=== PATIENT | female | born 1960 | race Caucasian/White ===

== ENCOUNTER → 2020-01-28 10:12 | Outpatient (BNVA) | payer MEDICAID, SELFPAY | PROVIDERS: Visit Provider Nurse Practitioner Family | DX: N39.0 Urinary tract infection, site not specified (principal) | CPT/HCPCS: 81001 ==

== ENCOUNTER 2020-02-09 09:07 | Outpatient (CLI) | payer MEDICAID, SELFPAY ==
[2020-02-09 10:19] LABS: Basophils % 0.3 %; Eosinophils # 0.8 10^3/uL (0.0-0.8); Eosinophils % 11.3 %; Hemoglobin 10.2 g/dL (11.5-15.3); Lymphocytes # 0.7 10^3/uL (0.8-4.8); Lymphocytes % 10.6 %; Mean Corpuscular HGB Conc 30.9 g/dL (30.0-36.0); Mean Corpuscular Hemoglobin 27.6 pg (28.0-34.0); Mean Corpuscular Volume 89.4 fL (81-99); Mean Platelet Volume 9.1 fL (7.4-10.4); Monocytes # 0.6 10^3/uL (0.2-0.9); Monocytes % 8.5 %; Neutrophils # 4.7 10^3/uL (1.8-7.7); Neutrophils % 68.7 %; Nucleated Red Blood Cells % 0 %; Platelet Count 252 10^3/cmm (130-400); Red Blood Count 3.69 10^6/uL (4.1-5.3); Red Cell Distribution Width 13.7 % (12.1-15.1); White Blood Count 6.8 10^3/uL (4.0-10.0)
[2020-02-09 10:29] LABS: INR 1.02 (0.8-1.2)
[2020-02-09 10:39] LABS: Alanine Aminotransferase 14 U/L (0-33); Albumin Level 3.3 g/dL (3.5-5.2); Alkaline Phosphatase 68 IU/L (35-105); Anion Gap 12.3 (5-19); Aspartate Amino Transferase 18 U/L (0-32); Blood Urea Nitrogen 8 mg/dL (6-20); Calcium 9.6 mg/dL (8.5-10.5); Carbon Dioxide 29 mmol/L (22-29); Chloride 104 mmol/L (98-107); Globulin 3.1 g/dL (1.3-4.6); Glomerular Filtration Rate 85.6 mL/min (90-130); Glucose 101 mg/dL (65-115); Magnesium 2.2 mg/dL (1.7-2.3); Osmolality Calculated 288 mOsm/kg (285-295); Potassium 4.3 mmol/L (3.5-5.1); Sodium 141 mmol/L (136-145); Total Bilirubin 0.2 mg/dL (0.15-1.2); Total Protein 6.4 g/dL (6.6-8.7)
== END 2020-02-09 09:08 | disposition home or self-care (01) ==
LOC: LAB 09:09
PROVIDERS: PCP Family Medicine; Visit Provider Obstetrics & Gynecology Gynecologic Oncology
DX: C54.1 Malignant neoplasm of endometrium (principal); R00.0 Tachycardia, unspecified; N90.89 Other specified noninflammatory disorders of vulva and perineum
CPT/HCPCS: 36415; 80053; 83735; 85025; 85610; 85730

== ENCOUNTER → 2020-04-03 11:07 | Outpatient (BNVA) | payer MEDICAID, SELFPAY | PROVIDERS: PCP Family Medicine; Visit Provider Family Medicine | DX: C54.1 Malignant neoplasm of endometrium (principal) | CPT/HCPCS: 80053; 81003; 87077; 87086; 87186 ==

== ENCOUNTER 2020-04-10 13:51 | Outpatient (CLI) | payer MEDICAID, SELFPAY ==
[2020-04-10 14:33] LABS: Basophils % 0.9 %; Eosinophils % 1.3 %; Hemoglobin 7.3 g/dL (11.5-15.3); Lymphocytes # 0.3 10^3/uL (0.8-4.8); Lymphocytes % 13.1 %; Mean Corpuscular HGB Conc 30.4 g/dL (30.0-36.0); Mean Corpuscular Hemoglobin 27.4 pg (28.0-34.0); Mean Corpuscular Volume 90.2 fL (81-99); Mean Platelet Volume 9.6 fL (7.4-10.4); Monocytes # 0.2 10^3/uL (0.2-0.9); Monocytes % 8.3 %; Neutrophils # 1.7 10^3/uL (1.8-7.7); Neutrophils % 75.5 %; Nucleated Red Blood Cells % 0 %; Platelet Count 166 10^3/cmm (130-400); Red Blood Count 2.66 10^6/uL (4.1-5.3); Red Cell Distribution Width 14.9 % (12.1-15.1); White Blood Count 2.3 10^3/uL (4.0-10.0)
[2020-04-10 14:38] LABS: INR 1.15 (0.8-1.2); Partial Thromboplastin Time 24.7 SECONDS (23.9-36.7)
[2020-04-10 14:46] LABS: Alanine Aminotransferase 10 U/L (0-33); Alkaline Phosphatase 62 IU/L (35-105); Anion Gap 15.9 (5-19); Aspartate Amino Transferase 13 U/L (0-32); Blood Urea Nitrogen 6 mg/dL (6-20); Calcium 9.6 mg/dL (8.5-10.5); Carbon Dioxide 28 mmol/L (22-29); Chloride 102 mmol/L (98-107); Globulin 2.9 g/dL (1.3-4.6); Glomerular Filtration Rate 85.6 mL/min (90-130); Glucose 164 mg/dL (65-115); Magnesium 1.5 mg/dL (1.7-2.3); Osmolality Calculated 293 mOsm/kg (285-295); Potassium 3.9 mmol/L (3.5-5.1); Sodium 142 mmol/L (136-145); Total Bilirubin 0.2 mg/dL (0.15-1.2); Total Protein 5.9 g/dL (6.6-8.7)
== END 2020-04-10 13:52 | disposition home or self-care (01) ==
LOC: LAB 13:55
PROVIDERS: PCP Family Medicine; Visit Provider Obstetrics & Gynecology Gynecologic Oncology
DX: C54.1 Malignant neoplasm of endometrium (principal)
CPT/HCPCS: 80053; 83735; 85025; 85610; 85730

== ENCOUNTER 2020-05-01 09:05 | Outpatient (CLI) | payer MEDICAID, SELFPAY ==
[2020-05-01 09:35] LABS: Basophils % 0.3 %; Eosinophils % 0.3 %; Hemoglobin 7.8 g/dL (11.5-15.3); Lymphocytes # 0.4 10^3/uL (0.8-4.8); Lymphocytes % 10.8 %; Mean Corpuscular HGB Conc 31.2 g/dL (30.0-36.0); Mean Corpuscular Hemoglobin 28.8 pg (28.0-34.0); Mean Corpuscular Volume 92.3 fL (81-99); Mean Platelet Volume 9.5 fL (7.4-10.4); Monocytes # 0.3 10^3/uL (0.2-0.9); Neutrophils % 81.1 %; Nucleated Red Blood Cells % 0 %; Platelet Count 147 10^3/cmm (130-400); Red Blood Count 2.71 10^6/uL (4.1-5.3); Red Cell Distribution Width 15.7 % (12.1-15.1); White Blood Count 3.7 10^3/uL (4.0-10.0)
[2020-05-01 09:50] LABS: Alanine Aminotransferase 12 U/L (0-33); Albumin Level 3.1 g/dL (3.5-5.2); Alkaline Phosphatase 66 IU/L (35-105); Anion Gap 18.7 (5-19); Aspartate Amino Transferase 18 U/L (0-32); Blood Urea Nitrogen 7 mg/dL (6-20); Calcium 9.7 mg/dL (8.5-10.5); Carbon Dioxide 24 mmol/L (22-29); Chloride 98 mmol/L (98-107); Globulin 3.1 g/dL (1.3-4.6); Glomerular Filtration Rate 85.6 mL/min (90-130); Glucose 226 mg/dL (65-115); Magnesium 1.2 mg/dL (1.7-2.3); Osmolality Calculated 287 mOsm/kg (285-295); Potassium 3.7 mmol/L (3.5-5.1); Sodium 137 mmol/L (136-145); Total Bilirubin 0.2 mg/dL (0.15-1.2); Total Protein 6.2 g/dL (6.6-8.7)
[2020-05-01 10:01] LABS: CA 125 26.1 U/mL (0-35)
== END 2020-05-01 09:06 | disposition home or self-care (01) ==
LOC: LAB 09:06
PROVIDERS: PCP Family Medicine; Visit Provider Obstetrics & Gynecology Gynecologic Oncology
DX: C54.1 Malignant neoplasm of endometrium (principal)
CPT/HCPCS: 80053; 83735; 85025; 86304

== ENCOUNTER 2020-05-22 08:17 | Outpatient (CLI) | payer MEDICAID, SELFPAY ==
[2020-05-22 08:54] LABS: Basophils % 0.4 %; Eosinophils % 0.8 %; Hematocrit 26.9 % (37.0-47.0); Hemoglobin 8.6 g/dL (11.5-15.3); Lymphocytes # 0.5 10^3/uL (0.8-4.8); Lymphocytes % 9.2 %; Mean Corpuscular Hemoglobin 29.6 pg (28.0-34.0); Mean Corpuscular Volume 92.4 fL (81-99); Mean Platelet Volume 9.9 fL (7.4-10.4); Monocytes # 0.6 10^3/uL (0.2-0.9); Monocytes % 10.5 %; Neutrophils # 4.2 10^3/uL (1.8-7.7); Neutrophils % 78.2 %; Nucleated Red Blood Cells % 0 %; Platelet Count 150 10^3/cmm (130-400); Red Blood Count 2.91 10^6/uL (4.1-5.3); Red Cell Distribution Width 17.8 % (12.1-15.1); White Blood Count 5.3 10^3/uL (4.0-10.0)
[2020-05-22 09:22] LABS: Alanine Aminotransferase 13 U/L (0-33); Albumin Level 3.5 g/dL (3.5-5.2); Alkaline Phosphatase 67 IU/L (35-105); Anion Gap 15.9 (5-19); Aspartate Amino Transferase 17 U/L (0-32); Blood Urea Nitrogen 7 mg/dL (6-20); Calcium 9.1 mg/dL (8.5-10.5); Carbon Dioxide 27 mmol/L (22-29); Chloride 102 mmol/L (98-107); Globulin 2.2 g/dL (1.3-4.6); Glomerular Filtration Rate 85.6 mL/min (90-130); Glucose 161 mg/dL (65-115); Magnesium 1.3 mg/dL (1.7-2.3); Osmolality Calculated 291 mOsm/kg (285-295); Potassium 3.9 mmol/L (3.5-5.1); Sodium 141 mmol/L (136-145); Total Bilirubin 0.3 mg/dL (0.15-1.2); Total Protein 5.7 g/dL (6.6-8.7)
[2020-05-22 09:33] LABS: CA 125 22.3 U/mL (0-35)
== END 2020-05-22 08:18 | disposition home or self-care (01) ==
PROVIDERS: PCP Family Medicine; Visit Provider Obstetrics & Gynecology Gynecologic Oncology
DX: C54.1 Malignant neoplasm of endometrium (principal)
CPT/HCPCS: 80053; 83735; 85025; 86304

== ENCOUNTER → 2020-08-24 10:28 | Outpatient (BNVA) | payer MEDICAID, SELFPAY | PROVIDERS: PCP Family Medicine; Visit Provider Family Medicine | DX: R30.0 Dysuria (principal) | CPT/HCPCS: 81000; 87086 ==

== ENCOUNTER → 2021-03-12 10:14 | Outpatient (BNVA) | payer MEDICAID, SELFPAY | PROVIDERS: PCP Family Medicine; Visit Provider Obstetrics & Gynecology Gynecologic Oncology | DX: C54.1 Malignant neoplasm of endometrium (principal) | CPT/HCPCS: 80053; 83735; 84443; 85025 ==

== ENCOUNTER → 2021-04-02 12:08 | Outpatient (BNVA) | payer MEDICAID, SELFPAY | PROVIDERS: PCP Family Medicine; Visit Provider Obstetrics & Gynecology Gynecologic Oncology | DX: C54.1 Malignant neoplasm of endometrium (principal) | CPT/HCPCS: 80053; 83735; 84443; 85025 ==

== ENCOUNTER → 2021-04-09 14:45 | Outpatient (BNVA) | payer MEDICAID, SELFPAY | PROVIDERS: PCP Family Medicine; Visit Provider Family Medicine | DX: C55 Malignant neoplasm of uterus, part unspecified (principal) | CPT/HCPCS: 81003; 87086 ==

== ENCOUNTER → 2021-04-20 11:58 | Outpatient (BNVA) | payer MEDICAID, SELFPAY | PROVIDERS: PCP Family Medicine; Visit Provider Family Medicine | DX: C55 Malignant neoplasm of uterus, part unspecified (principal); K62.5 Hemorrhage of anus and rectum | CPT/HCPCS: 80053; 83735; 84443; 85007; 85027; 86304 ==

== ENCOUNTER 2021-05-03 09:51 | Outpatient (CLI) | payer MEDICAID, SELFPAY ==
--- NOTE | 2021-05-03 09:57 | FL_ITS ---
WS: [id number] Barium Enema TECHNICAL: Double contrast barium enema FLUOROSCOPY TIME: 3.7 minutes CLINICAL INFORMATION: K62.5 - Hemorrhage of anus and rectum COMPARISON: None. FINDINGS: Loss of the normal mucosal pattern distal sigmoid colon extending to the rectum with decrea sed pliability. This is nonspecific but can be seen with chronic or recurrent colitis. Consider radia tion colitis considering clinical history. More proximal sigmoid colon is normal. No evidence of high-grade stricture. Sigmoid diverticulosis. M ultiple diverticuli in the left colon. Additional incidental diverticula in the transverse colon. Nor mal splenic and hepatic flexure. Contrast rapidly traverses the colon to the cecum without evidence o f obstruction or stricture or mass. Normal ileocecal valve. Normal postevacuation images. Pelvic phleboliths. Mild degenerative arthritis both hips. FL/FL barium enema w air* [id number] IMPRESSION: 1. Loss of the normal haustral markings with decreased pliability likely due t o chronic scarring with retraction. This is nonspecific but can be seen with ch ronic or recurrent colitis. 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 This can also be seen with chronic infectious or inflammatory colitis including ulcerative colitis. 2. No evidence of high-grade stricture or obstructing mass. 3. Multiple incidental diverticuli in the transverse colon, left colon and sig moid colon. 4. Normal ileocecal valve.
== END 2021-05-03 09:52 | disposition home or self-care (01) ==
PROVIDERS: PCP Family Medicine; Visit Provider Surgery
DX: K62.5 Hemorrhage of anus and rectum (principal); K57.30 Diverticulosis of large intestine without perforation or abscess without bleeding
CPT/HCPCS: 74280

== ENCOUNTER → 2021-05-11 11:08 | Outpatient (BNVA) | payer MEDICAID, SELFPAY | PROVIDERS: PCP Family Medicine; Visit Provider Obstetrics & Gynecology Gynecologic Oncology | DX: C55 Malignant neoplasm of uterus, part unspecified (principal); E11.9 Type 2 diabetes mellitus without complications; I10 Essential (primary) hypertension; Z79.899 Other long term (current) drug therapy | CPT/HCPCS: 80053; 83735; 84443; 85025 ==

== ENCOUNTER 2021-05-25 08:07 | Outpatient (CLI) | payer MEDICAID, SELFPAY | END 2021-05-25 08:08 | disposition home or self-care (01) | LOC: WOUND 08:08 | PROVIDERS: PCP Family Medicine; Visit Provider Nurse Practitioner Family | DX: I96 Gangrene, not elsewhere classified (principal); L89.312 Pressure ulcer of right buttock, stage 2; L89.322 Pressure ulcer of left buttock, stage 2 | CPT/HCPCS: 11042; G0463 ==

== ENCOUNTER 2021-06-01 12:55 | Outpatient (CLI) | payer MEDICAID, SELFPAY | END 2021-06-01 12:56 | disposition home or self-care (01) | LOC: WOUND 12:56 | PROVIDERS: PCP Family Medicine; Visit Provider Thoracic Surgery (Cardiothoracic Vascular Surgery) | DX: I96 Gangrene, not elsewhere classified (principal); L89.152 Pressure ulcer of sacral region, stage 2 | CPT/HCPCS: 97597 ==

== ENCOUNTER → 2021-06-08 11:05 | Outpatient (BNVA) | payer MEDICAID, SELFPAY | PROVIDERS: PCP Family Medicine; Visit Provider Obstetrics & Gynecology Gynecologic Oncology | DX: C55 Malignant neoplasm of uterus, part unspecified (principal) | CPT/HCPCS: 80053; 83735; 84443; 85007; 85027 ==

== ENCOUNTER 2021-06-14 11:11 | Outpatient (CLI) | payer MEDICAID, SELFPAY | END 2021-06-14 11:12 | disposition home or self-care (01) | LOC: WOUND 11:12 | PROVIDERS: PCP Family Medicine; Visit Provider Nurse Practitioner Family | DX: Z09 Encounter for follow-up examination after completed treatment for conditions other than malignant neoplasm (principal) | CPT/HCPCS: 99212 ==

== ENCOUNTER → 2021-06-22 10:24 | Outpatient (BNVA) | payer MEDICAID, SELFPAY | PROVIDERS: PCP Family Medicine; Visit Provider Family Medicine | DX: R05 Cough (principal) | CPT/HCPCS: 71046 ==

== ENCOUNTER 2021-06-22 12:38 | Emergency (ER) | payer MEDICAID, SELFPAY ==
[2021-06-22] VITALS (11 sets, daily range): BP systolic 112–179; BP diastolic 71–99; PULSE 84–94; RESP 15–20; TEMP 37.2; O2SAT 94–97; BMI 41.7
[2021-06-22 13:33] LABS: Basophils % 0.3 %; Eosinophils # 0.2 10^3/uL (0.0-0.8); Hematocrit 29.8 % (37.0-47.0); Hemoglobin 8.7 g/dL (11.5-15.3); Mean Corpuscular HGB Conc 29.2 g/dL (30.0-36.0); Mean Corpuscular Hemoglobin 25.4 pg (28.0-34.0); Mean Corpuscular Volume 86.9 fL (81-99); Mean Platelet Volume 9.1 fL (7.4-10.4); Monocytes # 0.6 10^3/uL (0.2-0.9); Monocytes % 5.5 %; Neutrophils % 82.4 %; Nucleated Red Blood Cells % 0 %; Platelet Count 328 10^3/cmm (130-400); Red Blood Count 3.43 10^6/uL (4.1-5.3); Red Cell Distribution Width 15.4 % (12.1-15.1); White Blood Count 10.7 10^3/uL (4.0-10.0)
--- NOTE | 2021-06-22 13:54 | USCV_ITS ---
Bernadette Vega Age: 60 Gender: F : 1960 Exam Date: 06/22/2021 14:16 Ordering Phys: Luis Jarquin MD Technologist: Uyen Harman [place] [facility] [place]: BLE SWELLING/CHEST PAIN HISTORY: Lower extremity swelling. PROCEDURES: Venous duplex imaging was performed in bilateral lower extremities. The following venous structures were evaluated: common femoral vein, profunda vein, proximal portion of the greater saphenous vein, superficial femoral vein, and the popliteal vein. In addition, the posterior tibial and peroneal trunk were evaluated. Serial compression, augmentation maneuvers, and spectral Doppler flow evaluation were performed. FINDINGS: Examination was technically limited due to body habitus. No evidence of DVT seen in any vessel visualized at this time. CONCLUSIONS No evidence of right lower extremity DVT. No evidence of left lower extremity DVT. Dereje Lindsay MD (Electronically Signed) Final Date: 22 June 2021 14:50 S
--- NOTE | 2021-06-22 13:55 | W.ED.RECABL ---
HPI - Recheck/Abnormal Lab/Rx General: Chief Complaint: Recheck/Abnormal Lab/Rx Stated Complaint: sent by Dr Marinelli:blood transfusion;IV antibiotics Time Seen by Provider: 06/22/21 13:16 History of Present Illness: HPI narrative: Patient is a 60-year-old female with past medical history endometrial cancer on chemotherapy. She comes from her primary care doctor's office Dr. Marinelli in [place] complaining she needs a blood transfusion and was sent for that. She also says she has pneumonia on the left lung. She says when she coughs she passes blood clots from her urine and rectum. She says that is related to injury to her urethra and bowels from radiation and is a chronic problem she has been dealing with. She has changed her diet which actually has improved her bleeding.. Review of Systems General: Reports: 10 or more systems reviewed and unremarkable except in HPI and below Const: Denies: fatigue Eyes: Denies: change in vision, blurry vision or eye redness ENMT: Denies: throat pain, swelling of lips/tongue, ear or mastoid pain or nasal congestion Card: Denies: chest pain, palpitations, irregular heart rhythm, edema, dyspnea on exertion or orthopnea Resp: Reports: non-productive cough; Denies: dyspnea or productive cough GI: Reports: other (Mild blood in her stool at times chronic and unchanged.); Denies: abdominal pain, diarrhea or GI cramping : Reports: other (Hematuria chronically and unchanged); Denies: flank pain, difficulty voiding, urinary frequency or urinary urgency Musc: Denies: neck pain, back pain, extremity pain, joint pain, joint redness, limited range of motion or muscle weakness Skin/Breast: Denies: rash, pruritus, erythema, skin pain or skin tenderness Neuro: Denies: headache(s), numbness in extremities, weakness in extremities, sensory changes, difficulty walking, dizziness, confusion or Slurred speech present Psych: Denies: anxiety or depression Endo: Denies: polyuria All/Imm: Denies: urticaria, throat swelling or tongue swelling PFSH ED PFSH: Medical History Abdominal aneurysm Aspergers' syndrome Diabetes mellitus Hx of tuberculosis Hypertension Surgical History History of tonsillectomy and adenoidectomy Hx of facial fracture repair Hx of foot surgery Social History Smoking and tobacco status: never smoked Second hand smoke exposure: No Alcohol intake: never Lives independently: No Household members: family Current occupational status: unemployed History of recent travel: No Current gender identity: Female Physical Exam Const: COMMON NORMALS: no acute distress, average body habitus, patient oriented x3, no limitations, healthy appearing, alert and well nourished GENERAL APPEARANCE: cooperative, comfortable, well kempt and well developed ORIENTATION/CONSCIOUSNESS: Yes awake, Yes oriented to person, Yes oriented to place and Yes oriented to time HENMT: COMMON NORMALS: normocephalic, external ears normal and Normal external nose present HEAD & SCALP: normal to inspection and normocephalic NOSE: Normal external nose present EXTERNAL EAR: Yes external ears normal MOUTH: Normal oral and palatal mucosa present THROAT: posterior oropharynx normal Eye: COMMON NORMALS: Equal, round and reactive pupils present and EOMs intact bilaterally GENERAL EYE: appearance normal, both eyes and all related structures PUPIL: Yes Equal, round and reactive pupils present Neck/C-Spine: COMMON NORMALS: full ROM, no lymphadenopathy, no meningeal signs and no JVD GENERAL: Yes normal visual inspection Lymph: LYMPHATIC: no lymphadenopathy noted Chest: COMMONS NORMALS: normal inspection of the chest and normal palpation of entire chest wall Resp: COMMON NORMALS: normal respiratory effort, No retractions, No use of accessory muscles, clear to auscultation bilaterally and percussion normal EFFORT & INSPECTION: Yes able to speak in complete sentences AUSCULTATION: clear to auscultation bilaterally PERCUSSION: percussion normal Cardio: COMMON NORMALS: no JVD, regular rate, regular rhythm, S1 normal heart sound present, S2 normal heart sound present and Peripheral pulses 2+ throughout RATE: regular rate RHYTHM: regular rhythm HEART SOUNDS: S1 normal heart sound present and S2 normal heart sound present PERIPHERAL PULSES: Peripheral pulses 2+ throughout GI: COMMON NORMALS: Normal to inspection, nondistended, normoactive bowel sounds present, Soft to palpation, non-tender and no masses INSPECTION: Yes normal to inspection PALPATION: Yes Soft to palpation : COMMON NORMALS: Yes no CVA tenderness BLADDER/KIDNEY EXAM: Yes no CVA tenderness Back/Pelvis: COMMON NORMALS: no CVA tenderness, thoracic and lumbar spine normal to inspection, no thoracic nor lumbar tenderness and thoraco-lumbar ROM normal Extremity: COMMON NORMALS: normal to inspection, full ROM, capillary refill normal, no joint enlargement and no pedal edema GENERAL: Yes normal exam except as noted Neuro: COMMON NORMALS: patient oriented x3, CN's II-XII intact bilaterally, moves all extremities, no focal motor deficits, no sensory deficits noted and gait normal SENSORIUM/ORIENTATION: Yes alert, Yes oriented to person, Yes oriented to place and Yes oriented to time MENINGEAL SIGNS: Yes no meningeal signs Psych: COMMON NORMALS: mental status grossly normal, Normal thought process present, cooperative, normal affect and speech normal APPEARANCE: Yes well kempt ATTITUDE: Yes calm SPEECH: Yes normal speech THOUGHT PROCESS: Normal thought process present Skin: COMMON NORMALS: no rashes or lesions noted GENERAL SKIN EXAM: no rashes or lesions noted Course Vital Signs: Vital signs: Vital Signs Temperature 99.0 F 06/22/21 12:50 Pulse Rate 85 06/22/21 21:00 Respiratory Rate 18 06/22/21 21:00 Blood Pressure 141/87 06/22/21 21:00 Pulse Oximetry 97 06/22/21 21:00 MDM - Recheck/Abnormal Lab/Rx MDM Narrative: Medical decision making narrative: This patient comes to the ED complaining of upper respiratory infectious symptoms and chronically having blood in her urine and stool related to injury from radiation treating her endometrial cancer. CT chest is negative for any acute pathology and she knows about the thyroid mass being cancerous. She is having this treated as an outpatient I recommended she continue to follow-up and do so. As far as the bleeding she has not had any significant bleeding in the ED. Urinalysis does show microscopic hematuria. Her hemoglobin is 8.7 here which does not qualify her for transfusion at this time. We will send her with outpatient antibiotics to treat her URI and Tessalon Perles. Recommended she follow-up with her primary care doctor in a couple days to monitor improvement of her symptoms and return to the ER at anytime with worsening symptoms. Lab Data: Labs: Lab Results 06/22/21 06/22/21 06/22/21 Range/Units 13:20 13:20 14:35 WBC 10.7 H (4.0-10.0) 10^3/ uL RBC 3.43 L (4.1-5.3) 10^6/u L Hgb 8.7 L (11.5-15.3) g/dL Hct 29.8 L (37.0-47.0) % MCV 86.9 (81-99) fL MCH 25.4 L (28.0-34.0) pg MCHC 29.2 L (30.0-36.0) g/dL RDW 15.4 H (12.1-15.1) % Plt Count 328 (130-400) 10^3/c mm MPV 9.1 (7.4-10.4) fL Neut % (Auto) 82.4 % Lymph % (Auto) 9.0 % [place] % (Auto) 5.5 % Eos % (Auto) 2.0 % Baso % (Auto) 0.3 % Neut # (Auto) 8.80 H (1.8-7.7) 10^3/u L Lymph # (Auto) 1.0 (0.8-4.8) 10^3/u L [place] # (Auto) 0.6 (0.2-0.9) 10^3/u L Eos # (Auto) 0.2 (0.0-0.8) 10^3/u L Baso # (Auto) 0.0 (0.0-0.1) 10^3/u L Nucleated RBC % (a uto) 0 % Nucleated RBCs # 0.0 /100WBC D-Dimer (0-0.59) ug/mIFE U Sodium Cancelled Potassium Cancelled Chloride Cancelled Carbon Dioxide Cancelled Anion Gap Cancelled BUN Cancelled Creatinine Cancelled GFR Calculation Cancelled Glucose Cancelled Calculated Osmolal ity Cancelled Lactate (0.5-2.2) mmol/L Calcium Cancelled Total Bilirubin Cancelled AST Cancelled ALT Cancelled Alkaline Phosphata se Cancelled Troponin T Baselin e (0-10) ng/L Troponin T 120 Min [place] (0-10) ng/L Delta Troponin T (0-10) ABS# NT-Pro-B Natriuret Pep (0-125) pg/mL Total Protein Cancelled Albumin Cancelled Globulin Cancelled Urine Color (Yellow) Urine Appearance (CLEAR) Urine pH (5-7) Ur Specific Gravit y (1.005-1.030) Urine Protein (Negative) Urine Glucose (UA) (Normal) Urine Ketones (Negative) Urine Blood (Negative) Urine Nitrate (Negative) Urine Bilirubin (Negative) Urine Urobilinogen (Negative) mg/dL Ur Leukocyte Kimmy ase (Negative) Urine RBC (0-2) /hpf Urine WBC (0-5) /hpf Ur Squamous Epith Cells (0-5) /hpf Amorphous Sediment Urine Bacteria (NONE) /hpf SARS-CoV-2 Ag (Rap id) Negative (Negative) Blood Type Rho(D) Type Antibody Screen 06/22/21 06/22/21 06/22/21 Range/Units 14:41 14:41 14:41 WBC (4.0-10.0) 10^3/ uL RBC (4.1-5.3) 10^6/u L Hgb (11.5-15.3) g/dL Hct (37.0-47.0) % MCV (81-99) fL MCH (28.0-34.0) pg MCHC (30.0-36.0) g/dL RDW (12.1-15.1) % Plt Count (130-400) 10^3/c mm MPV (7.4-10.4) fL Neut % (Auto) % Lymph % (Auto) % [place] % (Auto) % Eos % (Auto) % Baso % (Auto) % Neut # (Auto) (1.8-7.7) 10^3/u L Lymph # (Auto) (0.8-4.8) 10^3/u L [place] # (Auto) (0.2-0.9) 10^3/u L Eos # (Auto) (0.0-0.8) 10^3/u L Baso # (Auto) (0.0-0.1) 10^3/u L Nucleated RBC % (a uto) % Nucleated RBCs # /100WBC D-Dimer 0.31 (0-0.59) ug/mIFE U Sodium 134 L Potassium 4.2 Chloride 98 Carbon Dioxide 28 Anion Gap 12.2 BUN 7 L Creatinine 0.9 GFR Calculation 63.9 L Glucose 137 H Calculated Osmolal ity 278 L Lactate 1.2 (0.5-2.2) mmol/L Calcium 8.5 Total Bilirubin 0.2 AST 15 ALT 9 Alkaline Phosphata se 61 Troponin T Baselin e (0-10) ng/L Troponin T 120 Min [place] (0-10) ng/L Delta Troponin T (0-10) ABS# NT-Pro-B Natriuret Pep 91 (0-125) pg/mL Total Protein 6.6 Albumin 3.3 L Globulin 3.3 Urine Color (Yellow) Urine Appearance (CLEAR) Urine pH (5-7) Ur Specific Gravit y (1.005-1.030) Urine Protein (Negative) Urine Glucose (UA) (Normal) Urine Ketones (Negative) Urine Blood (Negative) Urine Nitrate (Negative) Urine Bilirubin (Negative) Urine Urobilinogen (Negative) mg/dL Ur Leukocyte Kimmy ase (Negative) Urine RBC (0-2) /hpf Urine WBC (0-5) /hpf Ur Squamous Epith Cells (0-5) /hpf Amorphous Sediment Urine Bacteria (NONE) /hpf SARS-CoV-2 Ag (Rap id) (Negative) Blood Type Rho(D) Type Antibody Screen 06/22/21 06/22/21 06/22/21 Range/Units 14:41 14:41 16:47 WBC (4.0-10.0) 10^3/ uL RBC (4.1-5.3) 10^6/u L Hgb (11.5-15.3) g/dL Hct (37.0-47.0) % MCV (81-99) fL MCH (28.0-34.0) pg MCHC (30.0-36.0) g/dL RDW (12.1-15.1) % Plt Count (130-400) 10^3/c mm MPV (7.4-10.4) fL Neut % (Auto) % Lymph % (Auto) % [place] % (Auto) % Eos % (Auto) % Baso % (Auto) % Neut # (Auto) (1.8-7.7) 10^3/u L Lymph # (Auto) (0.8-4.8) 10^3/u L [place] # (Auto) (0.2-0.9) 10^3/u L Eos # (Auto) (0.0-0.8) 10^3/u L Baso # (Auto) (0.0-0.1) 10^3/u L Nucleated RBC % (a uto) % Nucleated RBCs # /100WBC D-Dimer (0-0.59) ug/mIFE U Sodium Potassium Chloride Carbon Dioxide Anion Gap BUN Creatinine GFR Calculation Glucose Calculated Osmolal ity Lactate (0.5-2.2) mmol/L Calcium Total Bilirubin AST ALT Alkaline Phosphata se Troponin T Baselin e 13 H (0-10) ng/L Troponin T 120 Min [place] 13.11 H (0-10) ng/L Delta Troponin T 0.11 (0-10) ABS# NT-Pro-B Natriuret Pep (0-125) pg/mL Total Protein Albumin Globulin Urine Color (Yellow) Urine Appearance (CLEAR) Urine pH (5-7) Ur Specific Gravit y (1.005-1.030) Urine Protein (Negative) Urine Glucose (UA) (Normal) Urine Ketones (Negative) Urine Blood (Negative) Urine Nitrate (Negative) Urine Bilirubin (Negative) Urine Urobilinogen (Negative) mg/dL Ur Leukocyte Kimmy ase (Negative) Urine RBC (0-2) /hpf Urine WBC (0-5) /hpf Ur Squamous Epith Cells (0-5) /hpf Amorphous Sediment Urine Bacteria (NONE) /hpf SARS-CoV-2 Ag (Rap id) (Negative) Blood Type O Negative Rho(D) Type Negative / 0 Antibody Screen Negative 06/22/21 Range/Units 16:55 WBC (4.0-10.0) 10^3/ uL RBC (4.1-5.3) 10^6/u L Hgb (11.5-15.3) g/dL Hct (37.0-47.0) % MCV (81-99) fL MCH (28.0-34.0) pg MCHC (30.0-36.0) g/dL RDW (12.1-15.1) % Plt Count (130-400) 10^3/c mm MPV (7.4-10.4) fL Neut % (Auto) % Lymph % (Auto) % [place] % (Auto) % Eos % (Auto) % Baso % (Auto) % Neut # (Auto) (1.8-7.7) 10^3/u L Lymph # (Auto) (0.8-4.8) 10^3/u L [place] # (Auto) (0.2-0.9) 10^3/u L Eos # (Auto) (0.0-0.8) 10^3/u L Baso # (Auto) (0.0-0.1) 10^3/u L Nucleated RBC % (a uto) % Nucleated RBCs # /100WBC D-Dimer (0-0.59) ug/mIFE U Sodium Potassium Chloride Carbon Dioxide Anion Gap BUN Creatinine GFR Calculation Glucose Calculated Osmolal ity Lactate (0.5-2.2) mmol/L Calcium Total Bilirubin AST ALT Alkaline Phosphata se Troponin T Baselin e (0-10) ng/L Troponin T 120 Min [place] (0-10) ng/L Delta Troponin T (0-10) ABS# NT-Pro-B Natriuret Pep (0-125) pg/mL Total Protein Albumin Globulin Urine Color Yellow (Yellow) Urine Appearance Clear (CLEAR) Urine pH 6 (5-7) Ur Specific Gravit y 1.010 (1.005-1.030) Urine Protein Neg (Negative) Urine Glucose (UA) Norm (Normal) Urine Ketones Negative (Negative) Urine Blood 3+ H (Negative) Urine Nitrate Negative (Negative) Urine Bilirubin Neg (Negative) Urine Urobilinogen Norm (Negative) mg/dL Ur Leukocyte Kimmy ase Negative (Negative) Urine RBC 0-4 H (0-2) /hpf Urine WBC None (0-5) /hpf Ur Squamous Epith Cells 0-4 H (0-5) /hpf Amorphous Sediment Not Reportable Urine Bacteria 1+ H (NONE) /hpf SARS-CoV-2 Ag (Rap id) (Negative) Blood Type Rho(D) Type Antibody Screen Discharge Plan Discharge Patient Disposition: Home Clinical Impression: Acute upper respiratory infection, Anemia Condition: Stable Prescriptions: New azithromycin 250 mg tablet 250 mg PO DAILY 4 Days Qty: 4 RF: 0 Tessalon Perles 100 mg capsule 100 mg PO Q6H PRN (Reason: cough) Qty: 20 RF: 0 No Action nystatin 100,000 unit/gram cream 1 applic TOPICAL BID Qty: 30 RF: 1 Eliquis 5 mg tablet 5 mg PO BID RF: 0 oxycodone 5 mg tablet 5 mg PO Q4H PRN (Reason: Pain) RF: 0 Vitamin B-12 50 mcg Lozenge 50 mcg PO DAILY RF: 0 metoprolol tartrate 25 mg tablet 12.5 mg PO BID RF: 0 Discharge Orders: Discharge ED (Routine); Ordered 06/22/21 Ordered By: Luis Jarquin Referrals: Purvi Marinelli MD [Primary Care Provider] - Discharge Diet: Advance as tolerated Discharge Activity: Resume usual activity Patient Instructions: Anemia (ED), Opioid Safety, Upper Respiratory Infection - Adult Activity Restrictions/Additional Instructions: You have come to the ER complaining of a slight productive cough. Please take the azithromycin to help with this upper respiratory infection. Return to the ER at anytime with worsening symptoms or shortness of breath otherwise follow-up with your primary care physician in a couple days. Also you have bleeding chronically from your urine and stool which is unchanged. Your hemoglobin is 8.7 and not yet low enough to need a transfusion. Please return to the ER at anytime with worsening bleeding or increased weakness as this may be a sign that your blood is getting lower and may need a transfusion. Also be advised that you have a thyroid mass and you are aware of this and are having outpatient follow-up of it. 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
[2021-06-22 15:19] LABS: Troponin(5th) Baseline 13 ng/L (0-10)
[2021-06-22 15:20] LABS: Lactate (Lactic Acid level) 1.2 mmol/L (0.5-2.2)
--- NOTE | 2021-06-22 15:54 | ECG_ITS ---
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 Measurements Intervals [place] Rate: 82 P: 88 KS: 197 QRS: 32 QRSD: 94 T: 40 QT: 356 QTc: 417 Interpretive Statements SINUS RHYTHM Compared to ECG 09/15/2019 06:37:30 Sinus tachycardia no longer present T-wave abnormality no longer present Electronically Signed On 06-25-2021 0:37:36 CDT by Alanna Hartley M.D. [id number]
[2021-06-22 16:06] LABS: D Dimer 0.31 ug/mIFEU (0-0.59)
[2021-06-22 16:26] LABS: Alanine Aminotransferase 9 U/L (0-33); Albumin Level 3.3 g/dL (3.5-5.2); Alkaline Phosphatase 61 IU/L (35-105); Anion Gap 12.2 (5-19); Aspartate Amino Transferase 15 U/L (0-32); Blood Urea Nitrogen 7 mg/dL (8-23); Calcium 8.5 mg/dL (8.5-10.5); Carbon Dioxide 28 mmol/L (22-29); Chloride 98 mmol/L (98-107); Globulin 3.3 g/dL (1.3-4.6); Glomerular Filtration Rate 63.9 mL/min (90-130); Glucose 137 mg/dL (65-115); NT Pro B Type Natriuretic Pept 91 pg/mL (0-125); Osmolality Calculated 278 mOsm/kg (285-295); Potassium 4.2 mmol/L (3.5-5.1); Sodium 134 mmol/L (136-145); Total Bilirubin 0.2 mg/dL (0.15-1.2); Total Protein 6.6 g/dL (6.6-8.7)
[2021-06-22 16:59] LABS: SARS Covid-2 Antigen Negative (Negative)
[2021-06-22 17:16] LABS: Troponin 5 2HR 13.11 ng/L (0-10); Troponin 5 2HR Delta 0.11 ABS# (0-10)
--- NOTE | 2021-06-22 17:36 | CTR_ITS ---
PROCEDURE INFORMATION: Exam: CTA Chest With Contrast Exam date and time: 06/22/2021 5:36 PM Age: 60 years old Clinical indication: Other: Rectal bleeding; Prior surgery; Surgery date: 6+ months; Surgery type: Aaa; Patient HX: Current chemo PT for uterine CA C/O SOB, cough and rectal blleding and hematuria w cough; Additional info: Pe? Dyspnea TECHNIQUE: Imaging protocol: Computed tomographic angiography of the chest with contrast. 3D rendering (Not supervised by radiologist): MIP and/or 3D reconstructed images were created by the technologist. Radiation optimization: All CT scans at this facility use at least one of these dose optimization techniques: automated exposure control; mA and/or kV adjustment per patient size (includes targeted exams where dose is matched to clinical indication); or iterative reconstruction. Contrast material: OMNI 350; Contrast volume: 95 ml; Contrast route: INTRAVENOUS (IV); COMPARISON: CR XR chest 2V* [id number] 06/22/2021 10:34 AM RADIATION DOSE METRICS: Total DLP (mGy-cm): 2250.82 FINDINGS: Tubes, catheters and devices: Tunnel Port-A-Cath in the right chest with catheter tip terminating in the distal superior vena cava. Pulmonary arteries: Normal. No pulmonary emboli. Aorta: Unremarkable. No aortic aneurysm. No aortic dissection. Thyroid: Atrophic left thyroid lobe. Right thyroid lobe is significantly enlarged with central low-attenuation masslike area. The right lobe measures 7 cm craniocaudad height by 5.1 cm AP x 3.8 cm transverse. The proximal trachea is deviated left of midline by the right thyroid mass about 14 mm. There is no narrowing of the airway. Lungs: Negative for airspace consolidation. No endobronchial lesion. No septal thickening. Negative for peripheral honeycombing. Multiple small likely calcified pulmonary nodules in the medial inferior right upper lobe on axial series 2, image 264. Largest nodule about 6 mm diameter. Right middle lobe pulmonary nodule on axial series 2, image 296 measures 7-8 mm diameter. Pleural spaces: Unremarkable. No pneumothorax. No pleural effusion. Heart: Unremarkable. No cardiomegaly. No pericardial effusion. Lymph nodes: Unremarkable. No enlarged lymph nodes. Bones/joints: Unremarkable. No acute fracture. Soft tissues: Unremarkable. IMPRESSION: 1. Negative for pulmonary embolism. 2. No acute chest abnormality. 3. Small pulmonary nodules in the right upper lobe and the right middle lobe; favor granulomas. 4. Indeterminate large right thyroid mass. COMMENTS: Consistent with the [employer]'s Incidental Findings Committee white paper (J Am Jose Martin Radiol 2015): In patients aged 35 years and older with an incidental thyroid nodule equal to or greater than 1.[address], MRI or extrathyroidal US, further evaluation with dedicated thyroid US is recommended for patients with normal life expectancy and without comorbidities. For smaller nodules without suspicious features, no further evaluation or follow up is recommended. PROCEDURE INFORMATION: Exam: CT Abdomen And Pelvis With Contrast Exam date and time: 06/22/2021 5:36 PM Age: 60 years old Clinical indication: Other: Rectal bleeding; Prior surgery; Surgery date: 6+ months; Surgery type: Aaa; Patient HX: Current chemo PT for uterine CA C/O SOB, cough and rectal blleding and hematuria w cough; Additional info: Pe? Dyspnea TECHNIQUE: Imaging protocol: Computed tomography of the abdomen and pelvis with contrast. Radiation optimization: All CT scans at this facility use at least one of these dose optimization techniques: automated exposure control; mA and/or kV adjustment per patient size (includes targeted exams where dose is matched to clinical indication); or iterative reconstruction. Contrast material: OMNI 350; Contrast volume: 95 ml; Contrast route: INTRAVENOUS (IV); COMPARISON: CR XR chest 2V* [id number] 06/22/2021 10:34 AM RADIATION DOSE METRICS: Total DLP (mGy-cm): 2250.82 FINDINGS: Liver: Normal. No mass. Gallbladder and bile ducts: Normal. No calcified stones. No ductal dilation. Pancreas: Normal. No ductal dilation. Spleen: Normal. No splenomegaly. Adrenal glands: Normal. No mass. Kidneys and ureters: Normal. No hydronephrosis. Stomach and bowel: Unremarkable. No obstruction. No mucosal thickening. Appendix: No evidence of appendicitis. Intraperitoneal space: Unremarkable. No free air. No significant fluid collection. Vasculature: Unremarkable. No abdominal aortic aneurysm. Lymph nodes: Unremarkable. No enlarged lymph nodes. Urinary bladder: Mild circumferential thickening of bladder wall. Reproductive: Surgical clips in the lower uterine segment. No significant uterine enlargement. Endometrial complex measures about 6 mm thickness. Small volume fluid within vagina. Bones/joints: The lumbar spine demonstrates moderate discogenic and apophyseal joint degenerative changes at multiple levels. No suspicious bone lesion. Soft tissues: Soft tissue inflammatory changes of the mons pubis. CT/CT angio chest w abd pel w con IMPRESSION: 1. Mild nonspecific bladder wall thickening. 2. Small volume fluid in the vaginal vault. 3. Nonspecific soft tissue inflammatory changes of the mons pubis. Radiation Dose CTDIVOL = (mGy): DLP = 2250.82~2250.82 (mGy-cm)
[2021-06-22 17:50] LABS: Blood Urine 3+ (Negative); Glucose Urine UA Norm (Normal); Ketones Urine Negative (Negative); Nitrate Urine Negative (Negative); Protein Urine Neg (Negative); Urine Appearance Clear (CLEAR); Urine Color Yellow (Yellow); pH Urine 6 (5-7)
[2021-06-22 17:51] LABS: Add Urine Microscopic? YES; Bilirubin Urine Neg (Negative); Leukocyte Esterase Urine Negative (Negative); Urobilinogen Urine Norm (Negative)
[2021-06-22 18:19] LABS: Add Urine Culture? No; Bacteria Urine 1+ /hpf; RBC Urine 0-4 /hpf (0-2); Squamous Epithelial Cell Urine 0-4 /hpf (0-5)
[2021-06-22] MEDS: iohexol 350 mg/mL 100 mL Btl IV (19:34)
--- NOTE | 2021-06-22 19:54 | ECG_ITS ---
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
[2021-06-22] MEDS: azithromycin 250 mg Tablet 500 MG PO (20:32)
[2021-06-22] MEDS: benzonatate 100 mg Capsule PO (20:32)
== END 2021-06-22 21:05 | disposition home or self-care (01) ==
PROVIDERS: Nurse Practitioner Family; Emergency Provider Family Medicine; PCP Family Medicine
DX: J06.9 Acute upper respiratory infection, unspecified (principal); C54.1 Malignant neoplasm of endometrium; D63.0 Anemia in neoplastic disease; R31.29 Other microscopic hematuria; C73 Malignant neoplasm of thyroid gland; E11.9 Type 2 diabetes mellitus without complications; I10 Essential (primary) hypertension; Z79.01 Long term (current) use of anticoagulants
CPT/HCPCS: 71275; 74177; 80053; 81001; 83605; 83880; 84484; 85025; 85378; 86850; 86900; 87040; 87426; 93005; 93970; 99284; Q0144; Q9967

== ENCOUNTER → 2021-06-29 11:02 | Outpatient (BNVA) | payer MEDICAID, SELFPAY | PROVIDERS: PCP Family Medicine; Visit Provider Obstetrics & Gynecology Gynecologic Oncology | DX: C54.1 Malignant neoplasm of endometrium (principal) | CPT/HCPCS: 80053; 83735; 84443; 85025 ==

== ENCOUNTER → 2021-07-20 11:57 | Outpatient (BNVA) | payer MEDICAID, SELFPAY | PROVIDERS: PCP Family Medicine; Visit Provider Family Medicine | DX: C55 Malignant neoplasm of uterus, part unspecified (principal); K62.5 Hemorrhage of anus and rectum; I10 Essential (primary) hypertension | CPT/HCPCS: 80053; 83735; 84443; 85025 ==

== ENCOUNTER → 2021-08-10 09:58 | Outpatient (BNVA) | payer MEDICAID, SELFPAY | PROVIDERS: PCP Family Medicine; Visit Provider Obstetrics & Gynecology Gynecologic Oncology | DX: C54.1 Malignant neoplasm of endometrium (principal) | CPT/HCPCS: 80053; 83735; 84443; 85025 ==

== ENCOUNTER → 2021-08-30 10:00 | Outpatient (BNVA) | payer MEDICAID, SELFPAY | PROVIDERS: PCP Family Medicine; Visit Provider Obstetrics & Gynecology Gynecologic Oncology | DX: C55 Malignant neoplasm of uterus, part unspecified (principal) | CPT/HCPCS: 80053; 83735; 84443; 85025 ==

== ENCOUNTER → 2021-09-24 12:21 | Outpatient (BNVA) | payer MEDICAID, SELFPAY | PROVIDERS: PCP Family Medicine; Visit Provider Obstetrics & Gynecology Gynecologic Oncology | DX: C54.1 Malignant neoplasm of endometrium (principal) | CPT/HCPCS: 36415; 80053; 83735; 84443; 85025; 99398 ==

== ENCOUNTER → 2021-10-12 11:48 | Outpatient (BNVA) | payer MEDICAID, SELFPAY | PROVIDERS: PCP Family Medicine; Visit Provider Obstetrics & Gynecology Gynecologic Oncology | DX: C54.1 Malignant neoplasm of endometrium (principal) | CPT/HCPCS: 80053; 83735; 84443; 85025 ==

== ENCOUNTER → 2021-11-02 10:11 | Outpatient (BNVA) | payer MEDICAID, SELFPAY | PROVIDERS: PCP Family Medicine; Visit Provider Obstetrics & Gynecology Gynecologic Oncology | DX: C54.1 Malignant neoplasm of endometrium (principal); C55 Malignant neoplasm of uterus, part unspecified | CPT/HCPCS: 36415; 80053; 83735; 84443; 85025; 99398 ==

== ENCOUNTER → 2021-11-22 00:01 | Outpatient (BNVA) | payer MEDICAID, SELFPAY | PROVIDERS: PCP Family Medicine; Visit Provider Obstetrics & Gynecology Gynecologic Oncology | DX: C54.1 Malignant neoplasm of endometrium (principal) | CPT/HCPCS: 80053; 83735; 84443; 85025 ==

== ENCOUNTER → 2022-01-03 16:29 | Outpatient (BNVA) | payer MEDICAID, SELFPAY | PROVIDERS: PCP Family Medicine; Visit Provider Family Medicine | DX: K62.5 Hemorrhage of anus and rectum (principal); E11.41 Type 2 diabetes mellitus with diabetic mononeuropathy; C55 Malignant neoplasm of uterus, part unspecified; I10 Essential (primary) hypertension; C54.1 Malignant neoplasm of endometrium | CPT/HCPCS: 36415; 80053; 83036; 83735; 84443; 85025 ==

== ENCOUNTER → 2022-01-25 11:47 | Outpatient (BNVA) | payer MEDICAID, SELFPAY | PROVIDERS: PCP Family Medicine; Visit Provider Family Medicine | DX: C54.1 Malignant neoplasm of endometrium (principal) | CPT/HCPCS: 36415; 80053; 83735; 84443; 85025; 99398 ==

== ENCOUNTER → 2022-02-15 11:00 | Outpatient (BNVA) | payer MEDICAID, SELFPAY | PROVIDERS: PCP Family Medicine; Visit Provider Obstetrics & Gynecology Gynecologic Oncology | DX: C54.1 Malignant neoplasm of endometrium (principal) | CPT/HCPCS: 36415; 80053; 83735; 84443; 85025; 99398 ==

== ENCOUNTER → 2022-03-11 11:55 | Outpatient (BNVA) | payer MEDICAID, SELFPAY | PROVIDERS: PCP Family Medicine; Visit Provider Obstetrics & Gynecology Gynecologic Oncology | DX: C54.1 Malignant neoplasm of endometrium (principal) | CPT/HCPCS: 80053; 83735; 84443; 85025 ==

== ENCOUNTER → 2022-04-01 10:34 | Outpatient (BNVA) | payer MEDICAID, SELFPAY | PROVIDERS: PCP Family Medicine; Visit Provider Obstetrics & Gynecology Gynecologic Oncology | DX: C54.1 Malignant neoplasm of endometrium (principal) | CPT/HCPCS: 80053; 83735; 84443; 85025 ==

== ENCOUNTER → 2022-04-19 11:45 | Outpatient (BNVA) | payer MEDICAID, SELFPAY | PROVIDERS: PCP Family Medicine; Visit Provider Obstetrics & Gynecology Gynecologic Oncology | DX: C54.1 Malignant neoplasm of endometrium (principal) | CPT/HCPCS: 80053; 83735; 84443; 85025 ==

== ENCOUNTER → 2022-08-08 11:47 | Outpatient (BNVA) | payer MEDICAID, SELFPAY | PROVIDERS: PCP Family Medicine; Visit Provider Podiatrist Foot & Ankle Surgery | DX: M21.41 Flat foot [pes planus] (acquired), right foot (principal); M21.42 Flat foot [pes planus] (acquired), left foot; G62.9 Polyneuropathy, unspecified; E11.41 Type 2 diabetes mellitus with diabetic mononeuropathy; M20.41 Other hammer toe(s) (acquired), right foot; M20.42 Other hammer toe(s) (acquired), left foot | CPT/HCPCS: 73630; 99204 ==

== ENCOUNTER → 2022-10-28 12:38 | Outpatient (BNVA) | payer MEDICAID, SELFPAY | PROVIDERS: PCP Family Medicine; Visit Provider Family Medicine | DX: N39.0 Urinary tract infection, site not specified (principal) | CPT/HCPCS: 81003; 87077; 87086; 87184 ==

== ENCOUNTER → 2022-12-03 13:56 | Outpatient (BNVA) | payer MEDICAID, SELFPAY | PROVIDERS: PCP Family Medicine; Visit Provider Podiatrist Foot & Ankle Surgery | DX: S90.812A Abrasion, left foot, initial encounter (principal); W25.XXXA Contact with sharp glass, initial encounter; M21.41 Flat foot [pes planus] (acquired), right foot; M21.42 Flat foot [pes planus] (acquired), left foot; G62.9 Polyneuropathy, unspecified; E11.41 Type 2 diabetes mellitus with diabetic mononeuropathy; M20.41 Other hammer toe(s) (acquired), right foot; M20.42 Other hammer toe(s) (acquired), left foot | CPT/HCPCS: 73630; 99214 ==

== ENCOUNTER → 2023-02-05 13:07 | Outpatient (BNVA) | payer MEDICAID, SELFPAY | PROVIDERS: PCP Family Medicine; Visit Provider Family Medicine | DX: N39.0 Urinary tract infection, site not specified (principal) | CPT/HCPCS: 81003; 87077; 87086; 87184 ==

== ENCOUNTER → 2023-03-11 10:46 | Outpatient (BNVA) | payer MEDICAID, SELFPAY | PROVIDERS: PCP Family Medicine; Visit Provider Podiatrist Foot & Ankle Surgery | DX: E11.8 Type 2 diabetes mellitus with unspecified complications (principal); M21.41 Flat foot [pes planus] (acquired), right foot; M21.42 Flat foot [pes planus] (acquired), left foot; G62.9 Polyneuropathy, unspecified; E11.41 Type 2 diabetes mellitus with diabetic mononeuropathy; M20.41 Other hammer toe(s) (acquired), right foot; M20.42 Other hammer toe(s) (acquired), left foot | CPT/HCPCS: 99213 ==

== ENCOUNTER 2023-04-13 22:25 | Emergency (ER) | payer MEDICAID, SELFPAY ==
[2023-04-13 22:43] VITALS: BP 121/78; PULSE 77; RESP 18; TEMP 36.9; O2SAT 94; BMI 39.6
[2023-04-13 22:53] VITALS: BP 157/88; PULSE 71; O2SAT 95
--- NOTE | 2023-04-13 23:25 | W.ED.GENADLT ---
HPI - General Adult General: Chief complaint: Headache Stated complaint: high bp Time Seen by Provider: 04/13/23 22:59 Source: patient Mode of arrival: ambulatory Limitations: no limitations History of Present Illness: Patient is a very nice 62-year-old female who presents to the ED today with a main complaint of feeling off . She states she is a cancer patient with some type of lower abdomen/pelvic mass that they are coding as possible endometrial in origin. She states she is enrolled in a clinical trial as her tumor is an extremely rare phenomenon. Patient states she has underwent years of chemo and radiation with her last chemotherapy treatment being this week. Tells me because of all of her previous medical history she can often tell when something just does not feel right . She complains of a minor headache and some pulsing to her ears. She does not have any neck pain or neck stiffness. No visual changes. No neurologic deficits. She states she is not having any dizziness or lightheadedness and no trouble with ambulation. She does tell me that she has a swishing feeling in her head. She is not running fevers. She has no URI-like symptoms. 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 She states she has a chronic vesicovaginal and rectovaginal fistulas. She is not having any pain currently or anything moreso than baseline. She has noted some higher than normal diastolic blood pressure readings in the 100s. Onset (ago): day(s) Relieving factors: none Exacerbating factors: none Associated symptoms: Deny chest pain, confusion, dyspnea, headache(s), malaise, nausea, rash, palpitations, syncope or vomiting Treatments prior to arrival: none Review of Systems Const: Denies: fever(s), chills, body aches, fatigue or malaise Eyes: Denies: change in vision, blurry vision, photophobia, floaters or seeing flashes ENMT: Reports: tinnitus; Denies: throat pain, odynophagia, ear or mastoid pain, ear discharge, change in hearing, disequilibrium, nasal discharge, nasal congestion or sinus pain Card: Denies: chest pain, palpitations, irregular heart rhythm, lightheadedness, syncope or dyspnea on exertion Resp: Denies: dyspnea, productive cough or pain on inspiration GI: Reports: hematochezia (chronic); Denies: abdominal pain, nausea, vomiting, heartburn or diarrhea : Denies: flank pain, difficulty voiding, dysuria or urinary frequency Musc: Denies: neck pain, back pain, extremity pain, extremity swelling, joint pain or joint swelling Skin/Breast: Denies: rash Neuro: Denies: headache(s), numbness in extremities, weakness in extremities, sensory changes, lack of coordination, difficulty walking, frequent falls, dizziness, vertigo, confusion, Slurred speech present, difficulty communicating thoughts or seizure-like activity PFSH ED PFSH: Medical History Abdominal aneurysm Aspergers' syndrome Diabetes mellitus Hx of tuberculosis Hypertension Surgical History (Reviewed 04/14/23 @ 02: by YUNIOR Blake) History of tonsillectomy and adenoidectomy Hx of facial fracture repair Hx of foot surgery Social History Smoking and tobacco status: never smoked Second hand smoke exposure: No Alcohol intake: never Lives independently: No Household members: family Current occupational status: unemployed Current gender identity: Female Physical Exam Const: COMMON NORMALS: no acute distress, patient oriented x3, no limitations, alert and well nourished GENERAL APPEARANCE: cooperative ORIENTATION/CONSCIOUSNESS: Yes awake, Yes oriented to person, Yes oriented to place and Yes oriented to time OTHER: pleasant and in good spirits HENMT: COMMON NORMALS: normocephalic, atraumatic, external ears normal, EAC's normal and TM's normal bilaterally HEAD & SCALP: normal to inspection, normocephalic and atraumatic FACE & SINUS: normal facial exam EXTERNAL EAR: Yes external ears normal, Yes mastoids normal and Yes no periauricular adenopathy EXTERNAL AUDITORY CANAL: EAC's normal TYMPANIC MEMBRANE: TM's normal bilaterally TEETH & GINGIVA: Yes poor dentition (secondary to chemo/radiation) THROAT: posterior oropharynx normal and tonsils normal Eye: GENERAL EYE: appearance normal, both eyes and all related structures Neck/C-Spine: COMMON NORMALS: no lymphadenopathy Resp: COMMON NORMALS: normal respiratory effort and clear to auscultation bilaterally AUSCULTATION: clear to auscultation bilaterally Cardio: COMMON NORMALS: regular rate and regular rhythm RATE: regular rate RHYTHM: regular rhythm GI: COMMON NORMALS: Normal to inspection, nondistended, normoactive bowel sounds present, Soft to palpation, No hepatosplenomegaly present and no masses INSPECTION: Yes normal to inspection AUSCULTATION: Yes normoactive bowel sounds PALPATION: Yes Soft to palpation, Yes Tenderness to palpation present (GI) (lower abdomen-normal per patient), No Guarding due to palpation present (GI), No Rigid due to palpation and Yes No hepatosplenomegaly present : COMMON NORMALS: Yes no CVA tenderness BLADDER/KIDNEY EXAM: Yes no CVA tenderness Back/Pelvis: COMMON NORMALS: no CVA tenderness, thoracic and lumbar spine normal to inspection, no thoracic nor lumbar tenderness and thoraco-lumbar ROM normal Extremity: COMMON NORMALS: normal to inspection GENERAL: Yes normal exam except as noted Neuro: STARLA COMA SCALE: document GCS findings Starla coma scale eye opening: Spontaneous Starla coma scale verbal response: Orientated [place] coma scale motor response: Obey commands Starla coma scale total score: 15 COMMON NORMALS: patient oriented x3 SENSORIUM/ORIENTATION: Yes alert, Yes oriented to person, Yes oriented to place and Yes oriented to time Skin: COMMON NORMALS: no rashes or lesions noted GENERAL SKIN EXAM: no rashes or lesions noted Course Vital Signs: Vital signs: Vital Signs Temperature 98.5 F 04/13/23 22:43 Pulse Rate 63 04/14/23 01:00 Respiratory Rate 18 04/13/23 22:43 Blood Pressure 167/89 04/14/23 01:00 Pulse Oximetry 97 04/14/23 01:00 Oxygen Delivery Me thod Room Air 04/14/23 01:00 [facility] - General Adult Medical Decision Making Patient states she is feeling much better after IV fluids. She has been able to get up from her bed and ambulate to the bathroom multiple times without difficulty or assistance. Swishing feeling in her head and headache is gone. Her vital signs are stable. She appears in no acute distress. Blood work at this time is nonactionable. She is mildly anemic with a hemoglobin of 10.4-she states this is actually much higher than her baseline. CT head is negative. Patient feels comfortable going home and following up with her primary care provider. Lab Data 04/13/23 23:40 04/13/23 23:[address] 04/14/23 01:13 IMPRESSION: No acute intracranial abnormality. Laboratory Results WBC 7.0 10^3/uL (4.0-10.0) 04/13/23 23:40 RBC 4.17 10^6/uL (4.1-5.3) 04/13/23 23:40 Hgb 10.4 g/dL (11.5-15.3) L 04/13/23 23:40 Hct 34.7 % (37.0-47.0) L 04/13/23 23: MCV 83.2 fl (81-99) 04/13/23 23: MCH 24.9 pg (28.0-34.0) L 04/13/23 23: MCHC 30.0 g/dL (30.0-36.0) 04/13/23: RDW 15.7 % (12.1-15.1) H 04/13/23: Plt Count 278 10^3/cmm (130-400) 04/13/23 23: MPV 9.0 fL (7.4-10.4) 04/13/23 23:40 Neut % (Auto) 69.1 % 04/13/23 23:40 Lymph % (Auto) 18.1 % 04/13/23 23:40 [place] % (Auto) 7.4 % 04/13/23 23:40 Eos % (Auto) 4.6 % 04/13/23 23:40 Baso % (Auto) 0.4 % 04/13/23 23:40 Neut # (Auto) 4.84 10^3/uL (1.8-7.7) 04/13/23 23:40 Lymph # (Auto) 1.3 10^3/uL (0.8-4.8) 04/13/23 23:40 [place] # (Auto) 0.5 10^3/uL (0.2-0.9) 04/13/23 23:40 Eos # (Auto) 0.3 10^3/uL (0.0-0.8) 04/13/23 23:40 Baso # (Auto) 0.0 10^3/uL (0.0-0.1) 04/13/23:40 Nucleated RBC % (auto) 0 % 04/13/23: Nucleated RBCs # 0.0 /100WBC 04/13/23 23:40 Sodium 140 mmol/L (136-145) 04/13/23 23:40 Potassium 4.2 mmol/L (3.5-5.1) 04/13/23 23:40 Chloride 102 mmol/L (98-107) 04/13/23 23:40 Carbon Dioxide 28 mmol/L (22-29) 04/13/23 23:40 Anion Gap 14.2 (5-19) 04/13/23 23:40 BUN 11 mg/dL (8-23) 04/13/23 23:40 Creatinine 1.0 mg/dL (0.5-0.9) H 04/13/23 23:40 GFR Calculation 56.2 mL/min (90-130) L 04/13/23 23:40 Glucose 144 mg/dL (65-115) H 04/13/23 23:40 Calculated Osmolality 292 mOsm/kg (285-295) 04/13/23 23:40 Calcium 8.9 mg/dL (8.5-10.5) 04/13/23 23:40 Total Bilirubin 0.2 mg/dL (0.15-1.2) 04/13/23 23:40 AST 12 U/L (0-32) 04/13/23 23:40 ALT 9 U/L (0-33) 04/13/23 23:40 Alkaline Phosphatase 74 U/L (35-105) 04/13/23 23:40 Total Protein 6.8 g/dL (6.6-8.7) 04/13/23 23:40 Albumin 3.6 g/dL (3.5-5.2) 04/13/23 23:40 Globulin 3.2 g/dL (1.3-4.6) 04/13/23 23:40 Urine Color Yellow (Yellow) 04/14/23 00:57 Urine Appearance Clear (CLEAR) 04/14/23 00:57 Urine pH 7 (5-7) 04/14/23 00:57 Ur Specific [place] 1.010 (1.005-1.030) 04/14/23 00:57 Urine Protein Neg (Negative) 04/14/23 00:57 Urine Glucose (UA) Norm (Normal) 04/14/23 00:57 Urine Ketones Negative (Negative) 04/14/23 00:57 Urine Blood Neg (Negative) 04/14/23 00:57 Urine Nitrate Negative (Negative) 04/14/23 00:57 Urine Bilirubin Neg (Negative) 04/14/23 00:57 Urine Urobilinogen Norm mg/dL (Negative) 04/14/23 00:57 Ur Leukocyte Esterase Negative (Negative) 04/14/23 00:57 Discharge Plan Discharge Patient Disposition: Home Clinical Impression: Abnormal feeling Hypertension Qualifiers: Hypertension type: unspecified Qualified Code(s): I10 - Essential (primary) hypertension Condition: Stable Prescriptions: No Action multivitamin Tablet 1 tab PO BID metoprolol tartrate 25 mg tablet See Rx Instructions .ROUTE .COMPLEX Qty: 30 3RF Dose Instruction: Take 1/2 (one-half) tablet by mouth twice daily Rx Instructions: Take 1/2 (one-half) tablet by mouth twice daily (DME) Diabetic Shoes with 3 sets of insoles See Rx Instructions .Route .MEDSUPPLY Qty: 1 0RF Rx Instructions: As directed by [facility] phenazopyridine [Pyridium] 100 mg tablet 100 mg PO TID PRN (Reason: pain) Qty: 20 0RF Discharge Orders: Discharge ED (Routine); Ordered 04/14/23 Ordered By: Fallon Gamboa Referrals: Purvi Marinelli MD [Primary Care Provider] - Coding Level of Care Code ED 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
[2023-04-13] MEDS: sodium chloride 0.9% 1,000 ML 999 ML IV (23:52)
[2023-04-13 23:53] VITALS: PULSE 62; O2SAT 96
[2023-04-14 00:13] LABS: Basophils % 0.4 %; Eosinophils # 0.3 10^3/uL (0.0-0.8); Eosinophils % 4.6 %; Hematocrit 34.7 % (37.0-47.0); Hemoglobin 10.4 g/dL (11.5-15.3); Lymphocytes # 1.3 10^3/uL (0.8-4.8); Lymphocytes % 18.1 %; Mean Corpuscular Hemoglobin 24.9 pg (28.0-34.0); Mean Corpuscular Volume 83.2 fl (81-99); Monocytes # 0.5 10^3/uL (0.2-0.9); Monocytes % 7.4 %; Neutrophils # 4.84 10^3/uL (1.8-7.7); Neutrophils % 69.1 %; Nucleated Red Blood Cells % 0 %; Platelet Count 278 10^3/cmm (130-400); Red Blood Count 4.17 10^6/uL (4.1-5.3); Red Cell Distribution Width 15.7 % (12.1-15.1)
[2023-04-14 00:42] LABS: Alanine Aminotransferase 9 U/L (0-33); Albumin Level 3.6 g/dL (3.5-5.2); Alkaline Phosphatase 74 U/L (35-105); Anion Gap 14.2 (5-19); Aspartate Amino Transferase 12 U/L (0-32); Blood Urea Nitrogen 11 mg/dL (8-23); Calcium 8.9 mg/dL (8.5-10.5); Carbon Dioxide 28 mmol/L (22-29); Chloride 102 mmol/L (98-107); Globulin 3.2 g/dL (1.3-4.6); Glomerular Filtration Rate 56.2 mL/min (90-130); Glucose 144 mg/dL (65-115); Osmolality Calculated 292 mOsm/kg (285-295); Potassium 4.2 mmol/L (3.5-5.1); Sodium 140 mmol/L (136-145); Total Bilirubin 0.2 mg/dL (0.15-1.2); Total Protein 6.8 g/dL (6.6-8.7)
[2023-04-14 01:00] VITALS: BP 167/89; PULSE 63; O2SAT 97
[2023-04-14 01:00] LABS: Add Urine Microscopic? NO; Charge for UA Resulting for Rev
--- NOTE | 2023-04-14 01:13 | CTR_ITS ---
PROCEDURE INFORMATION: Exam: CT Head Without Contrast Exam date and time: 04/14/2023 1:24 AM Age: 62 years old Clinical indication: Pain; Headache; Other: Pulsatile tinnitus; Patient HX: Just finished chemo for uterine CA; Additional info: SHARP, pulsatile tinnitus TECHNIQUE: Imaging protocol: Computed tomography of the head without contrast. Radiation optimization: All CT scans at this facility use at least one of these dose optimization techniques: automated exposure control; mA and/or kV adjustment per patient size (includes targeted exams where dose is matched to clinical indication); or iterative reconstruction. REPORTING DATA: Count of CT and Cardiac NM exams in prior 12 months: This patient has received 0 known CTs and 0 known cardiac nuclear medicine studies in the 12 months prior to the current study. COMPARISON: No relevant prior studies available. RADIATION DOSE METRICS: Total DLP (mGy-cm): 1187.64 FINDINGS: Brain: No focal hemorrhage or midline shift is identified. Mild age-related change, age-appropriate. Cerebral ventricles: No ventriculomegaly or evidence of acute hydrocephalus. Paranasal sinuses: The partially assessed sinuses are grossly clear. Only trace bilateral maxillary mucosal thickening Mastoid air cells: Visualized mastoid air cells are well aerated. Bones/joints: No displaced skull fracture is noted. Soft tissues: Unremarkable. Vasculature: Advanced diffuse vascular calcification noted. CT/CT head wo con* 19500 IMPRESSION: No acute intracranial abnormality.
[2023-04-14 01:15] LABS: Bilirubin Urine Neg (Negative); Blood Urine Neg (Negative); Glucose Urine UA Norm (Normal); Ketones Urine Negative (Negative); Leukocyte Esterase Urine Negative (Negative); Nitrate Urine Negative (Negative); Protein Urine Neg (Negative); Urine Appearance Clear (CLEAR); Urine Color Yellow (Yellow); Urobilinogen Urine Norm (Negative); pH Urine 7 (5-7)
[2023-04-14 03:01] VITALS: BP 130/74; PULSE 72; RESP 16; O2SAT 92
== END 2023-04-14 03:09 | disposition home or self-care (01) ==
PROVIDERS: Emergency Provider Physician Assistant; PCP Family Medicine
DX: I10 Essential (primary) hypertension (principal); F84.5 Asperger's syndrome; E11.9 Type 2 diabetes mellitus without complications
CPT/HCPCS: 70450; 80053; 81003; 85025; 96360; 99284; J7030

== ENCOUNTER → 2023-07-02 13:26 | Outpatient (BNVA) | payer MEDICAID, SELFPAY | PROVIDERS: PCP Family Medicine; Visit Provider Family Medicine | DX: N39.0 Urinary tract infection, site not specified (principal) | CPT/HCPCS: 81003; 87077; 87086; 87184 ==

== ENCOUNTER → 2023-12-18 14:51 | Outpatient (BNVA) | payer MEDICAID, SELFPAY | PROVIDERS: PCP Family Medicine; Visit Provider Family Medicine | DX: K62.5 Hemorrhage of anus and rectum (principal) | CPT/HCPCS: 85025 ==